=== PATIENT | female | born 1995 | race Two or more races ===

== ENCOUNTER 2017-09-08 10:03 | Emergency (ER) | payer SELFPAY ==
[~2017-09-08] VITALS: Ht 162.6 cm; Wt 81.6 kg
[2017-09-08 10:28] VITALS: BP 120/82
--- NOTE | 2017-09-08 10:28 | Emergency Room Report ---
History of Present Illness General Chief Complaint: Lower Extremity Injury Source: Patient Present Illness HPI The patient fell yesterday at 10 AM. She twisted her ankle. She went on a hike after that. After the hike there was more swelling the ankle on the outside. She's been using a spray on the skin. The skin is now slightly reddish/pink in color. Her vaccinations are up-to-date. She has swelling and pain in the ankle. She's able to walk. Pain is 3-4/10, aching, not radiating. No . No constitutional sy. No dysuria. Allergies: Coded Allergies: No Known Allergies (Unverified , 09/08/17) Patient History Social History: Denies: smoking Social History Narrative from [facility] - visiting for 8 weeks Last Menstrual Period: 08/24/17 Now: No Reviewed Nursing Documentation: PMH: Agreed, PSxH: Agreed Nursing Documentation-PMH Past Medical History: No Stated History Review of Systems All Other Systems: negative except mentioned in HPI Physical Exam Vital Signs Date Time Temp Pulse Resp B/P (MAP) Pulse Ox O2 Delivery O2 Flow Rate FiO2 09/08/17 10:15 98.4 90 18 119/80 99 Room Air Sp02 EP Interpretation: reviewed, normal General Appearance: well appearing, no apparent distress Head: normocephalic, atraumatic Eyes: bilateral eye normal inspection ENT: hearing grossly normal, normal voice, moist mucus membranes Neck: full range of motion, supple Respiratory: no respiratory distress, speaking full sentences Cardiovascular #1: regular rate, rhythm Cardiovascular #2: 2+ radial (L), 2+ dorsalis pedis (L) Gastrointestinal: normal inspection Musculoskeletal: back normal, digits/nails normal, normal range of motion, no calf tenderness, swelling - lateral ankle L, ligaments stable, no point tenderness or 5th MT tenderness, ambulatory. Knee without pain Neurologic: alert, normal gait Psychiatric: mood/affect normal Skin: other - minimal erythema lateral maleolus Medical Decision Making Diagnostic Impression: Primary Impression: Left ankle sprain Qualified Codes: S93.412A - Sprain of calcaneofibular ligament of left ankle, initial encounter ER Course Patient with L ankle injury post fall. Ddx: fx, sprain, cellulitis. Based on [place] ankle rules, x-ray not indicated (patient also concerned about costs). Erythema after apply of spray for ankle injury. Consider early cellulitis, but this is unlikely. In any event, treatment with local care. An jamin was applied by the me. Position was excellent and neurovascular is normal. Patient stable for outpatient observation and treatment. Last Vital Signs Date Time Temp Pulse Resp B/P (MAP) Pulse Ox O2 Delivery O2 Flow Rate FiO2 09/08/17 10:28 88 18 120/82 100 09/08/17 10:15 98.4 Room Air Status: improved Disposition: HOME, SELF-CARE Condition: Improved Scripts Bacitracin (Bacitracin) 28.4 Gm Oint...g. 1 APPLIC TOPIC BID, #10 GM Prov: Woo Montague M.D. 09/08/17 Woo Montague M.D. Sep 08, 2017 10:28
[2017-09-08] MEDS ORDERED: BACITRACIN15 GM TOPIC (10:31)
== END 2017-09-08 10:28 | disposition home or self-care (01) ==
LOC: EMR 10:20
DX: S93.402A Sprain of unspecified ligament of left ankle, initial encounter (principal); X50.1XXA Overexertion from prolonged static or awkward postures, initial encounter; Y93.01 Activity, walking, marching and hiking; Y92.89 Other specified places as the place of occurrence of the external cause
CPT/HCPCS: 99282; 99283